=== PATIENT | female | born 1990 | race Two or more races ===

== ENCOUNTER 2019-11-16 14:10 | Outpatient (CLI) | payer MEDICAID ==
[~2019-11-16] VITALS: Ht 6 cm; Wt 84.8 kg
--- NOTE | 2019-11-16 15:17 | General Progress Note ---
Assessment/Plan Assessment/Plan: dysphagia and odandophagia s/p EGD and 2 ENT exams given carafate fu prn Subjective ROS Limited/Unobtainable: Yes Objective General Appearance: alert EENT: normal ENT inspection Neck: supple Cardiovascular: normal rate Respiratory/Chest: lungs clear Abdomen: normal bowel sounds, non tender, soft Extremities: non-tender Nick Cohen MD Nov 16, 2019 15:17
[2019-11-16 16:03] VITALS: BP 102/67
[2019-11-16] MEDS ORDERED: AZITHROMYCIN500 MG ORAL (16:03)
== END 2019-11-16 16:52 | disposition home or self-care (01) ==
LOC: PAN 14:10
DX: R13.10 Dysphagia, unspecified (principal)
CPT/HCPCS: G0463